=== PATIENT | female | born 1980 | race Hispanic/Latino ===

== ENCOUNTER 2021-09-06 13:51 | Emergency (ER) | payer OTHER ==
[~2021-09-06] VITALS: Ht 162.6 cm; Wt 95.3 kg
[2021-09-06] MEDS ORDERED: KETOROLAC 60 MG VIAL (30MG/ML) IM ONE (14:30)
[2021-09-06] MEDS ORDERED: CYCLOBENZAPRINE HCL 10 MG TABLET PO ONE (14:30)
[2021-09-06] MEDS ORDERED: HYDROCODONE/ACETAMINOPHEN 10/325 MG TAB PO ONE (14:30)
[2021-09-06] MEDS ORDERED: CYCL10TA16 PO (15:10)
[2021-09-06] MEDS ORDERED: ACET-2247 PO (15:10)
[2021-09-06 15:29] VITALS: BP 136/88
[2021-09-06] MEDS ORDERED: FENTANYL 50 MCG/HR PATCH TD SCH (15:30)
[2021-09-10] MEDS ORDERED: KETO10TA2 PO (09:58)
[2021-09-10] MEDS ORDERED: ATOR10TA69 PO (09:58)
[2021-09-10] MEDS ORDERED: LISI10TA24 PO (09:58)
== END 2021-09-06 15:49 | disposition home or self-care (01) ==
LOC: EDH 13:51
DX: R10.2 Pelvic and perineal pain (principal); I10 Essential (primary) hypertension; E11.9 Type 2 diabetes mellitus without complications; Z79.899 Other long term (current) drug therapy
CPT/HCPCS: 96372; 99284; J1885

== ENCOUNTER 2021-09-10 15:53 | Observation (INO) | payer OTHER ==
[~2021-09-10] VITALS: Ht 162.6 cm; Wt 96.2 kg
[2021-09-10 10:38] LABS: BASOPHILS % (AUTO) 0.9 % (0.0-5.0); EOSINOPHILS % (AUTO) 5.9 % (0.0-8.0); HEMATOCRIT 39.7 % (36-48); LYMPHOCYTES % (AUTO) 26.1 % (21.0-51.0); MEAN CORPUSCULAR HEMOGLOBIN 27.6 pg (27.0-33.0); MEAN CORPUSCULAR HGB CONC 32.2 g/dL (32.0-36.0); MEAN CORPUSCULAR VOLUME 85.6 fL (79-99); MONOCYTES % (AUTO) 6.8 % (3.0-13.0); PLATELET COUNT (AUTO) 277 K/uL (130-400); RED BLOOD CELL COUNT(AUTO) 4.64 MIL/uL (4.00-5.50); RED CELL DISTRIBUTION WIDTH 13.3 % (11.0-15.5); WHITE BLOOD COUNT (AUTO) 5.8 K/uL (4.8-10.8)
[2021-09-10 10:47] LABS: ALBUMIN 3.8 g/dL (3.5-5.0); BILIRUBIN,TOTAL 0.2 mg/dL (0.2-1.0); CREATININE 0.8 mg/dL (0.5-1.5); TOTAL PROTEIN, SERUM 7.8 g/dL (6.0-8.3)
[~2021-09-10 15:53] MED LIST changes: -ATOR10 PO; -CEFAZOLIN SODIUM 1 GM VIAL IVP SCH; -LACTATED RINGERS 1000ML 1,000 ML IV SCH; -METF-446 PO
[2021-09-10] MEDS ORDERED: MORPHINE 4 MG SYG IV PRN (17:30)
[2021-09-10 17:34] VITALS: BP 142/99
[2021-09-10] MEDS: DEXTROSE 5%-LACTATED RINGERS 1,000 ML IV SCH (18:17)
[2021-09-10 20:43] VITALS: BP 143/91
[2021-09-10] MEDS ORDERED: PROMETHAZINE HCL 25 MG/ML 1ML AMPULE IM PRN (21:00)
[2021-09-10] MEDS ORDERED: MEPERIDINE-PF 75 MG/ML SYG IM PRN (21:00)
[2021-09-10 23:16] VITALS: BP 132/90
[2021-09-11] VITALS (21 sets, daily range): BP systolic 120–159; BP diastolic 84–97
[2021-09-11] MEDS: DEXTROSE 5%-LACTATED RINGERS 1,000 ML IV SCH (01:21)
[2021-09-11] MEDS ORDERED: FLU VACC QS2021-22(6MOS UP)/PF 60 MCG/0.5 ML ML IM ONE (06:00)
[2021-09-11] MEDS ORDERED: 0.9%NACL 1000ML 1,000 ML IV ONE (07:14)
[2021-09-11] MEDS ORDERED: ONDANSETRON 4MG INJ ONE (07:31)
[2021-09-11] MEDS ORDERED: LIDOCAINE PF 100MG/5ML (2%) SYRINGE 5ML ONE (07:31)
[2021-09-11] MEDS ORDERED: DEXAMETHASONE SOD PHOSPHATE 4 MG/ML 1ML VIAL ONE (07:31)
[2021-09-11] MEDS ORDERED: MIDAZOLAM HCL 1 MG/ML 2ML VIAL ONE (07:31)
[2021-09-11] MEDS ORDERED: PROPOFOL 10 MG/ML 20ML VIAL IV ONE (07:31)
[2021-09-11] MEDS ORDERED: ROCURONIUM 10MG/1ML SYR 10 MG/ML ML ONE (07:32)
[2021-09-11] MEDS ORDERED: FENTANYL CITRATE PF 50 MCG/1 ML 2ML VIAL ONE (07:32)
[2021-09-11] MEDS ORDERED: FENTANYL 25 MCG/HR PATCH TD SCH (14:30)
== END 2021-09-11 18:25 | disposition home or self-care (01) ==
LOC: EDH 15:53 → WSH 16:05
PROVIDERS: ADMIT Obstetrics & Gynecology; ATTEND Obstetrics & Gynecology
DX: N99.85 Post endometrial ablation syndrome (principal); Z20.822 Contact with and (suspected) exposure to COVID-19; E78.00 Pure hypercholesterolemia, unspecified; I10 Essential (primary) hypertension; E78.5 Hyperlipidemia, unspecified; E11.9 Type 2 diabetes mellitus without complications; K21.9 Gastro-esophageal reflux disease without esophagitis; E66.9 Obesity, unspecified; Z79.899 Other long term (current) drug therapy
CPT/HCPCS: 36415; 58558; 80053; 84703; 85025; 86850; 86900; 86901; 87635; 96372; 96374; A4222; A4223; A4351; A4355; A4600; A4606; A4930; C9803; G0378 ×24; J1100; J2001; J2175; J2250; J2270; J2405; J2550; J2704; J3010; J7030 ×2

== ENCOUNTER → 2021-09-10 | Outpatient (CLI) | payer OTHER ==
[~2021-09-10] VITALS: Ht 162.6 cm; Wt 96.3 kg
[~2021-09-10] MED LIST: ACET-2247 PO; ATOR10 PO; ATOR10TA69 PO; CEFAZOLIN SODIUM 1 GM VIAL IVP SCH; CYCL10TA16 PO; KETO10TA2 PO; LACTATED RINGERS 1000ML 1,000 ML IV SCH; LISI10TA24 PO; METF-446 PO
[2021-09-10 10:51] VITALS: BP 153/96
== END | disposition home or self-care (01) ==
LOC: DAH 10:00 → EDSTATUS 09-11 07:30
PROVIDERS: ATTEND Obstetrics & Gynecology
DX: Z01.818 Encounter for other preprocedural examination (principal); N99.85 Post endometrial ablation syndrome; N85.2 Hypertrophy of uterus
CPT/HCPCS: 93005; A6260; 82948; J0690

== ENCOUNTER 2021-09-13 13:21 | Inpatient (IN) | payer OTHER ==
[~2021-09-13] VITALS: Ht 152.4 cm; Wt 96.2 kg
[~2021-09-13 13:21] MED LIST changes: -ACET-2247 PO
[2021-09-13] MEDS ORDERED: LORAZEPAM 2 MG/ML 1 ML VIAL ONE (13:49)
[2021-09-13] MEDS ORDERED: MEPERIDINE-PF 50 MG/ML SYG ONE (13:50)
[2021-09-13 13:58] LABS: BASOPHILS % (AUTO) 0.6 % (0.0-5.0); HEMATOCRIT 43.9 % (36-48); MEAN CORPUSCULAR HEMOGLOBIN 27.7 pg (27.0-33.0); MEAN CORPUSCULAR HGB CONC 32.8 g/dL (32.0-36.0); MEAN CORPUSCULAR VOLUME 84.6 fL (79-99); MONOCYTES % (AUTO) 5.4 % (3.0-13.0); NEUTROPHILS % (AUTO) 61.7 % (40.0-77.0); PLATELET COUNT (AUTO) 319 K/uL (130-400); RED BLOOD CELL COUNT(AUTO) 5.19 MIL/uL (4.00-5.50); RED CELL DISTRIBUTION WIDTH 13.4 % (11.0-15.5); WHITE BLOOD COUNT (AUTO) 9.5 K/uL (4.8-10.8)
[2021-09-13] MEDS ORDERED: KETOROLAC 30MG VIAL (30MG/ML) IV ONE (14:00)
[2021-09-13] MEDS ORDERED: LORAZEPAM 2 MG/ML 1 ML VIAL IVP ONE (14:00)
[2021-09-13 14:04] LABS: APPEARANCE,URINE CLOUDY (CLEAR); BILIRUBIN,URINE NEGATIVE (NEGATIVE); COLOR,URINE YELLOW (YELLOW); GLUCOSE, URINE (UA) NEGATIVE (NEGATIVE); KETONES,URINE NEGATIVE (NEGATIVE); LEUKOCYTE ESTERASE ,URINE MODERATE (NEGATIVE); NITRATE,URINE NEGATIVE (NEGATIVE); OCCULT BLOOD,URINE MODERATE (NEGATIVE); PROTEIN,URINE 30 mg/dL (NEGATIVE); UROBILINOGEN,URINE 0.2 mg/dL (0.2-1.0)
[2021-09-13 14:08] LABS: CREATININE 0.7 mg/dL (0.5-1.5); POTASSIUM 3.6 mmol/L (3.5-5.1)
[2021-09-13 14:11] LABS: INR 0.99 (0.85-1.15); PROTHROMBIN TIME 10.8 SEC (9.6-11.6)
[2021-09-13 14:12] LABS: PARTIAL THROMBOPLASTIN TIME 29.3 SEC (26.3-35.5)
[2021-09-13 14:13] LABS: BILIRUBIN,TOTAL 0.3 mg/dL (0.2-1.0); TOTAL PROTEIN, SERUM 8.4 g/dL (6.0-8.3)
[2021-09-13 14:19] LABS: BACTERIA,URINE Moderate /HPF (None Seen); SQUAMOUS EPITHELIAL CELL,UR 50-100 /HPF (0-2)
[2021-09-13] MEDS ORDERED: CEFTRIAXONE 1G VIAL IVP ONE (14:30)
[2021-09-13 15:15] VITALS: BP 138/95
[2021-09-13] MEDS ORDERED: MEPERIDINE-PF 75 MG/ML SYG IVP ONE (15:30)
[2021-09-13] MEDS ORDERED: PROMETHAZINE HCL 25 MG/ML 1ML AMPULE IM ONE (15:30)
[2021-09-13] MEDS ORDERED: METF-446 PO (17:37)
[2021-09-13] MEDS ORDERED: ATOR10 PO (17:37)
[2021-09-13] MEDS ORDERED: LISI10TA24 PO (17:37)
[2021-09-13 19:25] VITALS: BP 132/90
[2021-09-13] MEDS: ATORVASTATIN 10 MG TABLET PO SCH (21:11)
[2021-09-13 23:32] VITALS: BP 132/90
[2021-09-14] VITALS (31 sets, daily range): BP systolic 117–155; BP diastolic 82–114
[2021-09-14] MEDS ORDERED: MEPERIDINE-PF 75 MG/ML SYG IM PRN (01:00)
[2021-09-14] MEDS ORDERED: PROMETHAZINE HCL 25 MG/ML 1ML AMPULE IM PRN ×2 (01:00→16:30)
[2021-09-14] MEDS: PROMETHAZINE HCL 25 MG/ML 1ML AMPULE IM PRN ×3 (01:05→21:21)
[2021-09-14] MEDS: MEPERIDINE-PF 50 MG/ML SYG IM PRN (01:06)
[2021-09-14] MEDS: DEXTROSE 5%-LACTATED RINGERS 1,000 ML IV SCH ×3 (01:13→17:53)
[2021-09-14] MEDS: METFORMIN HCL 500 MG TAB.SR.24H PO SCH (07:30)
[2021-09-14] MEDS: LISINOPRIL 10 MG TABLET PO SCH (08:19)
[2021-09-14] MEDS ORDERED: MORPHINE PF 100MG/10ML AMP IV ONE (13:14)
[2021-09-14] MEDS ORDERED: KETAMINE 50MG/ML SYRINGE 50 MG/ML DISP.SYRIN IV ONE (13:14)
[2021-09-14] MEDS ORDERED: ONDANSETRON 4MG INJ ONE ×2 (13:20→13:21)
[2021-09-14] MEDS ORDERED: ROCURONIUM 10MG/1ML SYR 10 MG/ML ML ONE (13:20)
[2021-09-14] MEDS ORDERED: LIDOCAINE PF 100MG/5ML (2%) SYRINGE 5ML ONE (13:20)
[2021-09-14] MEDS ORDERED: NEOSTIGMINE 5MG/5ML SYR IV ONE (13:20)
[2021-09-14] MEDS ORDERED: GLYCOPYRROLATE 1 MG/5 ML SYRINGE ONE (13:20)
[2021-09-14] MEDS ORDERED: DEXAMETHASONE SOD PHOSPHATE 4 MG/ML 1ML VIAL ONE (13:20)
[2021-09-14] MEDS ORDERED: PROPOFOL 10 MG/ML 20ML VIAL IV ONE (13:20)
[2021-09-14] MEDS ORDERED: MIDAZOLAM HCL 1 MG/ML 2ML VIAL ONE (13:20)
[2021-09-14] MEDS ORDERED: SUCCINYLCHOLINE CHLORIDE 20 MG/ML 10 ML VIAL ONE (13:20)
[2021-09-14] MEDS ORDERED: CEFAZOLIN SODIUM 1 GM VIAL ONE (13:38)
[2021-09-14] MEDS ORDERED: CEFAZOLIN SODIUM 1 GM VIAL IVP PRN (14:00)
[2021-09-14] MEDS ORDERED: DEXAMETHASONE SOD PHOSPHATE 10MG/ML 1ML VIAL ONE (14:44)
[2021-09-14] MEDS ORDERED: PHENYLEPHRINE HCL 10 MG/ML 1ML VIAL IV ONE (15:16)
[2021-09-14] MEDS ORDERED: 0.9%NACL 10ML VIAL ONE (16:05)
[2021-09-14] MEDS ORDERED: BISACODYL 10 MG SUPP.RECT RC PRN (16:30)
[2021-09-14] MEDS ORDERED: MEPERIDINE-PF 25 MG/ML SYG ONE ×2 (16:30→16:43)
[2021-09-14] MEDS ORDERED: IBUPROFEN 600 MG TABLET PO PRN (16:30)
[2021-09-14] MEDS: MEPERIDINE-PF 75 MG/ML SYG IM PRN ×2 (17:40→21:22)
[2021-09-14] MEDS: CALDOLOR 800MG+NS 250ML 250 ML IV SCH (17:52)
[2021-09-14] MEDS: ACETAMINOPHEN WITH CODEINE 1 TAB TAB PO PRN (18:57)
[2021-09-14] MEDS ORDERED: HYDRALAZINE 20MG/ML VIAL IV ONE ×2 (20:00→21:00)
[2021-09-14] MEDS: ATORVASTATIN 10 MG TABLET PO SCH (20:45)
[2021-09-15] VITALS (7 sets, daily range): BP systolic 104–158; BP diastolic 67–90
[2021-09-15] MEDS: CALDOLOR 800MG+NS 250ML 250 ML IV SCH ×2 (00:20→08:31)
[2021-09-15] MEDS: DEXTROSE 5%-LACTATED RINGERS 1,000 ML IV SCH (04:41)
[2021-09-15] MEDS: ACETAMINOPHEN WITH CODEINE 1 TAB TAB PO PRN ×4 (06:28→23:36)
[2021-09-15] MEDS ORDERED: HYDROCODONE/ACETAMINOPHEN 5/325 MG TAB PO PRN (07:30)
[2021-09-15] MEDS: METFORMIN HCL 500 MG TAB.SR.24H PO SCH (07:36)
[2021-09-15] MEDS: LISINOPRIL 10 MG TABLET PO SCH ×2 (08:31→08:33)
[2021-09-15] MEDS: DOCUSATE SODIUM 100 MG CAP PO PRN ×2 (08:31→20:32)
[2021-09-15] MEDS: SIMETHICONE 80 MG TAB.CHEW PO PRN ×2 (08:31→20:32)
[2021-09-15 14:01] LABS: MEAN CORPUSCULAR HEMOGLOBIN 27.8 pg (27.0-33.0); MEAN CORPUSCULAR HGB CONC 31.6 g/dL (32.0-36.0); RED BLOOD CELL COUNT(AUTO) 4.32 MIL/uL (4.00-5.50); RED CELL DISTRIBUTION WIDTH 13.8 % (11.0-15.5); WHITE BLOOD COUNT (AUTO) 11.5 K/uL (4.8-10.8)
[2021-09-15] MEDS: ATORVASTATIN 10 MG TABLET PO SCH (20:32)
[2021-09-15] MEDS: PROMETHAZINE HCL 25 MG/ML 1ML AMPULE IM PRN (20:33)
[2021-09-15] MEDS: MEPERIDINE-PF 50 MG/ML SYG IM PRN (20:34)
[2021-09-15] MEDS: IBUPROFEN 800 MG TAB PO PRN (23:36)
[2021-09-16 03:55] VITALS: BP 133/87
[2021-09-16] MEDS: ACETAMINOPHEN WITH CODEINE 1 TAB TAB PO PRN (06:05)
[2021-09-16] MEDS: METFORMIN HCL 500 MG TAB.SR.24H PO SCH (07:47)
[2021-09-16 08:00] VITALS: BP 118/95
[2021-09-16] MEDS: SIMETHICONE 80 MG TAB.CHEW PO PRN ×3 (08:47→14:28)
[2021-09-16] MEDS: DOCUSATE SODIUM 100 MG CAP PO PRN ×2 (08:47→09:04)
[2021-09-16] MEDS: LISINOPRIL 10 MG TABLET PO SCH ×2 (08:47→09:04)
[2021-09-16] MEDS: IBUPROFEN 800 MG TAB PO PRN ×2 (08:48→14:30)
[2021-09-16] MEDS: PROMETHAZINE HCL 25 MG/ML 1ML AMPULE IM PRN (10:49)
[2021-09-16] MEDS: MEPERIDINE-PF 50 MG/ML SYG IM PRN (10:50)
[2021-09-16 11:50] VITALS: BP 143/95
== END 2021-09-16 16:00 | disposition home or self-care (01) | DRG 742 ==
LOC: EDH 13:21 → WSH 13:50
PROVIDERS: ADMIT Obstetrics & Gynecology; ATTEND Obstetrics & Gynecology
PROC: 0UT90ZZ Resection of Uterus, Open Approach (ICD-10-PCS; principal; 2021-09-14 14:22)
PROC: 0UB70ZZ Excision of Bilateral Fallopian Tubes, Open Approach (ICD-10-PCS; 2021-09-14 14:22)
DX: N88.8 Other specified noninflammatory disorders of cervix uteri (principal); Z68.41 Body mass index [BMI] 40.0-44.9, adult; R10.2 Pelvic and perineal pain; N99.85 Post endometrial ablation syndrome; E11.9 Type 2 diabetes mellitus without complications; I10 Essential (primary) hypertension; E66.9 Obesity, unspecified; E78.00 Pure hypercholesterolemia, unspecified; Z98.51 Tubal ligation status; Z91.19 Patient's noncompliance with other medical treatment and regimen
CPT/HCPCS: 36415; 80053; 81001; 82948; 85025; 85027; 85610; 85730; 86850; 86900; 86901; 87077; 87088; 87186; A4344; G0378; J0330; J0360; J0690; J0696; J1100; J1741; J2001; J2060; J2175; J2250; J2274; J2370; J2405; J2550; J2704; J2710; J3490; J7030; J7120